=== PATIENT | male | born 1945 | race Native Hawaiian/Other Pacific Islander ===

== ENCOUNTER 2019-04-01 12:49 | Emergency (ER) | payer OTHER ==
[~2019-04-01] VITALS: Ht 167.6 cm; Wt 72.3 kg
[~2019-04-01 12:49] MED LIST: ASPI81TA87 PO; ATOR20TA86 PO; DSS100 PO; INSLAN SQ; INSNOV SQ; ISOS60TA4 PO; VIT1TABL95 PO
[2019-04-01 14:48] LABS: GLUCOSE,POINT OF CARE 214 MG/DL (70-110)
[2019-04-01 15:17] LABS: BASOPHILS % (AUTO) 0.6 % (0.0-2.0); EOSINOPHILS % (AUTO) 2.2 % (1.0-6.0); HEMATOCRIT 29.8 % (41-53); HEMOGLOBIN 9.9 g/dL (13.5-17.5); LYMPHOCYTES # (AUTO) 1.1 K/uL (1.0-4.8); LYMPHOCYTES % (AUTO) 10.1 % (22.0-44.0); MEAN CORPUSCULAR HEMOGLOBIN 28.4 pg (26.0-34.0); MEAN CORPUSCULAR HGB CONC 33.3 G/dL (31.0-37.0); MEAN CORPUSCULAR VOLUME 85 fL (80-100); MONOCYTES # (AUTO) 0.9 K/uL (0.1-1.0); MONOCYTES % (AUTO) 8.9 % (2.0-9.0); NEUTROPHILS # (AUTO) 8.2 K/uL (1.8-7.7); NEUTROPHILS % (AUTO) 78.2 % (40.0-70.0); PLATELET COUNT (AUTO) 229 K/uL (150-450); RED CELL DISTRIBUTION WIDTH 15.5 % (11.5-14.5)
[2019-04-01 15:36] LABS: CALCIUM, TOTAL 9.3 mg/dL (8.8-10.5); CREATININE 3.97 mg/dL (0.60-1.30); POTASSIUM 4.4 mmol/L (3.5-5.1)
[2019-04-01 15:43] LABS: ALBUMIN 2.4 g/dL (3.4-5.0); BILIRUBIN,TOTAL 0.3 mg/dL (0.1-1.0); TOTAL PROTEIN, SERUM 7.8 g/dL (6.4-8.2)
[2019-04-01] MEDS ORDERED: MECLIZINE HCL 25 MG TABLET PO ONE (16:00)
[2019-04-01] MEDS ORDERED: SODIUM CHLORIDE 0.9% 1,000 ML IV ONE (16:00)
[2019-04-01 18:42] VITALS: BP 141/77
[2019-04-01 19:01] LABS: GLUCOSE,POINT OF CARE 223 MG/DL (70-110)
== END 2019-04-01 19:10 | disposition short-term general hospital (02) ==
LOC: EMS 12:52
DX: J90 Pleural effusion, not elsewhere classified (principal); R42 Dizziness and giddiness; R53.1 Weakness; N17.9 Acute kidney failure, unspecified; E11.9 Type 2 diabetes mellitus without complications; E78.00 Pure hypercholesterolemia, unspecified; I10 Essential (primary) hypertension; Z79.899 Other long term (current) drug therapy; Z79.4 Long term (current) use of insulin
CPT/HCPCS: 36415; 71045; 80053; 82962; 83880; 84484; 85025; 93005; 99285; J7030

== ENCOUNTER 2020-11-13 20:08 | Inpatient (IN) | payer OTHER ==
[~2020-11-13] VITALS: Ht 167.6 cm; Wt 68.1 kg
[~2020-11-13 20:08] MED LIST changes: -ISOS60TA4 PO; +ISOS60TA77 PO
[2020-11-13 22:22] LABS: HEMATOCRIT 34.4 % (41-53); HEMOGLOBIN 11.3 g/dL (13.5-17.5); MEAN CORPUSCULAR HEMOGLOBIN 29.2 pg (26.0-34.0); MEAN CORPUSCULAR HGB CONC 32.8 G/dL (31.0-37.0); MEAN CORPUSCULAR VOLUME 89 fL (80-100); PLATELET COUNT (AUTO) 230 K/uL (150-450); RED BLOOD CELL COUNT(AUTO) 3.86 MIL/uL (4.50-5.90); RED CELL DISTRIBUTION WIDTH 16.5 % (11.5-14.5)
[2020-11-13 22:31] LABS: CALCIUM, TOTAL 9.2 mg/dL (8.8-10.5); CREATININE 3.7 mg/dL (0.60-1.30); POTASSIUM 3.5 mmol/L (3.5-5.1)
[2020-11-13 22:37] LABS: ALBUMIN 2.5 g/dL (3.4-5.0); BILIRUBIN,TOTAL 0.5 mg/dL (0.1-1.0); TOTAL PROTEIN, SERUM 7.5 g/dL (6.4-8.2)
[2020-11-13 22:42] LABS: BAND NEUTROPHILS % (MANUAL) 7 % (0-5); BASOPHILS % (MANUAL) 1 % (0-2); LYMPHOCYTES % (MANUAL) 4 % (22-44); METAMYELOCYTES % 3 % (0-0); MONOCYTES % (MANUAL) 4 % (2-9); MYELOCYTES % 1 % (0-0); SEGMENTED NEUTROPHILS % 80 % (40-70)
[2020-11-13] MEDS ORDERED: AZITHROMYCIN 500 MG/NS 250 ML IV ONE (23:30)
[2020-11-13] MEDS ORDERED: CefTRIAXone 1 GM/DEXTROSE 50 ML IV ONE (23:30)
[2020-11-14 00:01] LABS: COVID AG,FIA SOURCE NASAL SWAB
[2020-11-14] MEDS ORDERED: DEXTROSE 50%-WATER 25 GM/50 ML SYRINGE IVP PRN (05:30)
[2020-11-14 06:49] LABS: LACTIC ACID 2.6 mmol/L (0.4-2.0)
[2020-11-14] MEDS ORDERED: SODIUM CHLORIDE 0.9% 250 ML IV ONE (07:15)
[2020-11-14] MEDS: DOCUSATE SODIUM 100 MG CAPSULE PO SCH ×2 (07:33→20:47)
[2020-11-14] MEDS: ATORVASTATIN CALCIUM 20 MG TABLET PO SCH (07:33)
[2020-11-14] MEDS ORDERED: SODIUM CHLORIDE 0.9% 500 ML IV ONE (07:45)
[2020-11-14] MEDS ORDERED: SODIUM CHLORIDE 0.9% 100 ML ONE (07:57)
[2020-11-14] MEDS ORDERED: IOHEXOL 350 MG/ML 75 ML VIAL ONE (07:57)
[2020-11-14] MEDS ORDERED: ASPIRIN 81 MG DR TABLET PO SCH (09:00)
[2020-11-14 09:45] VITALS: BP 147/118
[2020-11-14] MEDS ORDERED: IBRU140C PO (10:30)
[2020-11-14 11:49] VITALS: BP 146/80
[2020-11-14] MEDS: INSULIN LISPRO 100 UNITS/ML SQ PRN ×2 (12:03→18:05)
[2020-11-14 15:59] VITALS: BP 149/89
[2020-11-14 20:26] LABS: GLUCOMETER DEV NAME(LOC) 5S.2B; GLUCOSE,POINT OF CARE 249 MG/DL (70-110)
[2020-11-14 20:35] VITALS: BP 138/75
[2020-11-14] MEDS: INSULIN GLARGINE,HUM.REC.ANLOG 100 UNITS/ML SQ SCH (20:53)
[2020-11-14 22:36] LABS: GLUCOMETER DEV NAME(LOC) 5S.1; GLUCOSE,POINT OF CARE 169 MG/DL (70-110)
[2020-11-15] MEDS: AZITHROMYCIN 500 MG/NS 250 ML IV SCH (00:15)
[2020-11-15] MEDS: CefTRIAXone 1 GM/DEXTROSE 50 ML IV SCH ×2 (00:15→23:42)
[2020-11-15 00:40] VITALS: BP 141/83
[2020-11-15 00:42] LABS: GLUCOMETER DEV NAME(LOC) 5S.2B; GLUCOSE,POINT OF CARE 164 MG/DL (70-110)
[2020-11-15 04:46] VITALS: BP 151/83
[2020-11-15] MEDS: MECLIZINE HCL 25 MG TABLET PO PRN ×2 (06:29→21:09)
[2020-11-15] MEDS: DOCUSATE SODIUM 100 MG CAPSULE PO SCH ×2 (08:36→21:09)
[2020-11-15] MEDS: ASPIRIN 81 MG DR TABLET PO SCH (08:36)
[2020-11-15] MEDS: ATORVASTATIN CALCIUM 20 MG TABLET PO SCH (08:36)
[2020-11-15] MEDS ORDERED: LACT10SO75 PO (10:45)
[2020-11-15] MEDS ORDERED: LOPE2 PO (10:45)
[2020-11-15] MEDS ORDERED: PHOSLOC PO (10:45)
[2020-11-15] MEDS ORDERED: GABA-1216 PO (10:45)
[2020-11-15] MEDS ORDERED: APIX2.5T PO (10:45)
[2020-11-15] MEDS ORDERED: LORA-1000 PO (10:45)
[2020-11-15 11:29] VITALS: BP 153/82
[2020-11-15] MEDS ORDERED: MECL-160 PO (11:29)
[2020-11-15] MEDS ORDERED: MIRT-89 PO (11:29)
[2020-11-15] MEDS ORDERED: FOLI1TAB85 PO (11:29)
[2020-11-15] MEDS ORDERED: METO50 PO (11:29)
[2020-11-15] MEDS ORDERED: NITR0.4T52 SL (11:29)
[2020-11-15] MEDS ORDERED: TAMS-13 PO (11:29)
[2020-11-15] MEDS ORDERED: PANT-31 PO (11:29)
[2020-11-15] MEDS ORDERED: OMEP20 PO (11:29)
[2020-11-15] MEDS ORDERED: CHOL-35 PO (11:29)
[2020-11-15] MEDS ORDERED: FLUT16H NASAL (11:29)
[2020-11-15] MEDS ORDERED: SEVE0.8P6 PO (11:29)
[2020-11-15] MEDS ORDERED: TRAM50TA4 PO (11:29)
[2020-11-15] MEDS ORDERED: ALLO100T2 PO (11:29)
[2020-11-15] MEDS ORDERED: ACET-3385 PO (11:29)
[2020-11-15] MEDS: INSULIN LISPRO 100 UNITS/ML SQ PRN ×2 (11:50→17:07)
[2020-11-15] MEDS ORDERED: METOPROLOL TARTRATE 50 MG TABLET PO ONE (13:00)
[2020-11-15 13:31] LABS: GLUCOMETER DEV NAME(LOC) 5S.2B; GLUCOSE,POINT OF CARE 145 MG/DL (70-110)
[2020-11-15 13:31] LABS: GLUCOMETER DEV NAME(LOC) 5S.2B; GLUCOSE,POINT OF CARE 91 MG/DL (70-110)
[2020-11-15] MEDS: VITAMIN B COMP/VIT C/FOLIC ACID CAPSULE PO SCH (13:48)
[2020-11-15] MEDS: HEPARIN SODIUM,PORCINE 5,000 UNITS/ML VIAL SQ SCH ×3 (16:00→21:09)
[2020-11-15] MEDS: CALCIUM ACETATE 667 MG CAPSULE PO SCH (18:00)
[2020-11-15] MEDS: SEVELAMER CARBONATE 800 MG TABLET PO SCH (18:00)
[2020-11-15] MEDS ORDERED: SODIUM CHLORIDE 0.9% 2,000 ML ONE (19:18)
[2020-11-15 20:07] VITALS: BP 165/95
[2020-11-15 20:20] LABS: GLUCOMETER DEV NAME(LOC) 5S.2B; GLUCOSE,POINT OF CARE 143 MG/DL (70-110)
[2020-11-15] MEDS: FLUTICASONE PROPIONATE 50 MCG/SPRAY 16 GM NASAL SPRAY NASAL SCH (21:08)
[2020-11-15] MEDS: GABAPENTIN 100 MG CAPSULE PO SCH (21:08)
[2020-11-15] MEDS: MIRTAZAPINE 15 MG TABLET PO SCH (21:09)
[2020-11-15] MEDS: METOPROLOL TARTRATE 50 MG TABLET PO SCH (21:09)
[2020-11-15] MEDS: INSULIN GLARGINE,HUM.REC.ANLOG 100 UNITS/ML SQ SCH (21:19)
[2020-11-15 22:32] LABS: GLUCOMETER DEV NAME(LOC) 5N.1C; GLUCOSE,POINT OF CARE 180 MG/DL (70-110)
[2020-11-16 00:03] VITALS: BP 123/74
[2020-11-16] MEDS: AZITHROMYCIN 500 MG/NS 250 ML IV SCH ×2 (00:28→23:17)
[2020-11-16 03:52] VITALS: BP 150/80
[2020-11-16 07:50] VITALS: BP 147/79
[2020-11-16] MEDS: SEVELAMER CARBONATE 800 MG TABLET PO SCH ×3 (08:35→18:02)
[2020-11-16] MEDS: DOCUSATE SODIUM 100 MG CAPSULE PO SCH ×2 (08:35→21:04)
[2020-11-16] MEDS: CHOLECALCIFEROL (VIT D3) 1,000 UNITS [25 MCG] TABLET PO SCH (08:35)
[2020-11-16] MEDS: ATORVASTATIN CALCIUM 20 MG TABLET PO SCH (08:35)
[2020-11-16] MEDS: METOPROLOL TARTRATE 50 MG TABLET PO SCH ×2 (08:35→21:04)
[2020-11-16] MEDS: TAMSULOSIN HCL 0.4 MG CAPSULE PO SCH (08:35)
[2020-11-16] MEDS: ISOSORBIDE MONONITRATE 60 MG ER TABLET PO SCH (08:35)
[2020-11-16] MEDS: ALLOPURINOL 100 MG TABLET PO SCH (08:36)
[2020-11-16] MEDS: VITAMIN B COMP/VIT C/FOLIC ACID CAPSULE PO SCH (08:36)
[2020-11-16] MEDS: CALCIUM ACETATE 667 MG CAPSULE PO SCH ×3 (08:36→18:03)
[2020-11-16] MEDS: HEPARIN SODIUM,PORCINE 5,000 UNITS/ML VIAL SQ SCH ×3 (08:36→21:00)
[2020-11-16] MEDS: ASPIRIN 81 MG DR TABLET PO SCH (08:36)
[2020-11-16] MEDS: FLUTICASONE PROPIONATE 50 MCG/SPRAY 16 GM NASAL SPRAY NASAL SCH ×2 (08:37→21:04)
[2020-11-16 08:54] LABS: GLUCOMETER DEV NAME(LOC) 5S.2B; GLUCOSE,POINT OF CARE 96 MG/DL (70-110)
[2020-11-16] MEDS ORDERED: VITAMIN B COMP/VIT C/FOLIC ACID CAPSULE PO SCH (09:00)
[2020-11-16 10:14] LABS: PROTHROMBIN TIME 10.4 SEC (9.4-11.6)
[2020-11-16 11:45] VITALS: BP 116/75
[2020-11-16] MEDS: INSULIN LISPRO 100 UNITS/ML SQ PRN ×2 (11:55→18:03)
[2020-11-16 12:38] LABS: GLUCOMETER DEV NAME(LOC) 5S.2B; GLUCOSE,POINT OF CARE 184 MG/DL (70-110)
[2020-11-16 16:05] VITALS: BP 137/99
[2020-11-16 18:36] LABS: GLUCOMETER DEV NAME(LOC) 5S.1; GLUCOSE,POINT OF CARE 185 MG/DL (70-110)
[2020-11-16 20:15] VITALS: BP 137/86
[2020-11-16] MEDS: GABAPENTIN 100 MG CAPSULE PO SCH (21:04)
[2020-11-16] MEDS: MIRTAZAPINE 15 MG TABLET PO SCH (21:04)
[2020-11-16] MEDS: INSULIN GLARGINE,HUM.REC.ANLOG 100 UNITS/ML SQ SCH (21:13)
[2020-11-16] MEDS: CefTRIAXone 1 GM/DEXTROSE 50 ML IV SCH (22:40)
[2020-11-17 00:48] VITALS: BP 181/96
[2020-11-17] MEDS ORDERED: HydrALAZINE HCL 20 MG/ML VIAL IVP ONE (01:00)
[2020-11-17 03:29] VITALS: BP 157/75
[2020-11-17 05:41] LABS: GLUCOMETER DEV NAME(LOC) 5S.1; GLUCOSE,POINT OF CARE 202 MG/DL (70-110)
[2020-11-17] MEDS ORDERED: SODIUM CHLORIDE 0.9% 1,000 ML ONE ×3 (06:48→10:31)
[2020-11-17] MEDS ORDERED: SODIUM CL IRRIG SOLN BAG 0 ML IRRIG ONE (06:48)
[2020-11-17] MEDS ORDERED: SODIUM CHLORIDE 0.9% 500 ML IV ONE ×2 (06:48→21:26)
[2020-11-17] MEDS ORDERED: LIDOCAINE/PF 1% 30 ML VIAL ONE (06:48)
[2020-11-17 07:10] LABS: GLUCOMETER DEV NAME(LOC) 5S.2B; GLUCOSE,POINT OF CARE 130 MG/DL (70-110)
[2020-11-17 07:37] VITALS: BP 150/82
[2020-11-17] MEDS: SEVELAMER CARBONATE 800 MG TABLET PO SCH ×3 (08:00→18:19)
[2020-11-17] MEDS: CALCIUM ACETATE 667 MG CAPSULE PO SCH ×3 (08:00→18:19)
[2020-11-17] MEDS ORDERED: SODIUM CHLORIDE 0.9% 1,000 ML IV ONE (08:15)
[2020-11-17 08:37] LABS: HEMATOCRIT 31.8 % (41-53); HEMOGLOBIN 10.4 g/dL (13.5-17.5); LYMPHOCYTES # (AUTO) 1.2 K/uL (1.0-4.8); LYMPHOCYTES % (AUTO) 13.4 % (22.0-44.0); MEAN CORPUSCULAR HEMOGLOBIN 29.3 pg (26.0-34.0); MEAN CORPUSCULAR HGB CONC 32.6 G/dL (31.0-37.0); MEAN CORPUSCULAR VOLUME 90 fL (80-100); MONOCYTES % (AUTO) 11.9 % (2.0-9.0); NEUTROPHILS # (AUTO) 5.7 K/uL (1.8-7.7); NEUTROPHILS % (AUTO) 65.7 % (40.0-70.0); PLATELET COUNT (AUTO) 222 K/uL (150-450); RED BLOOD CELL COUNT(AUTO) 3.54 MIL/uL (4.50-5.90); RED CELL DISTRIBUTION WIDTH 16.3 % (11.5-14.5)
[2020-11-17 08:45] LABS: CALCIUM, TOTAL 10.2 mg/dL (8.8-10.5); CREATININE 4.63 mg/dL (0.60-1.30); POTASSIUM 3.4 mmol/L (3.5-5.1)
[2020-11-17 08:52] LABS: ALBUMIN 2.1 g/dL (3.4-5.0); BILIRUBIN,TOTAL 0.2 mg/dL (0.1-1.0); TOTAL PROTEIN, SERUM 6.5 g/dL (6.4-8.2)
[2020-11-17 08:56] LABS: PROTHROMBIN TIME 10.3 SEC (9.4-11.6)
[2020-11-17] MEDS: HEPARIN SODIUM,PORCINE 5,000 UNITS/ML VIAL SQ SCH ×3 (09:00→20:43)
[2020-11-17] MEDS: TAMSULOSIN HCL 0.4 MG CAPSULE PO SCH (09:00)
[2020-11-17] MEDS: ALLOPURINOL 100 MG TABLET PO SCH (09:00)
[2020-11-17] MEDS: ATORVASTATIN CALCIUM 20 MG TABLET PO SCH (09:00)
[2020-11-17] MEDS: DOCUSATE SODIUM 100 MG CAPSULE PO SCH ×2 (09:00→20:43)
[2020-11-17] MEDS: FLUTICASONE PROPIONATE 50 MCG/SPRAY 16 GM NASAL SPRAY NASAL SCH ×2 (09:00→20:44)
[2020-11-17] MEDS: VITAMIN B COMP/VIT C/FOLIC ACID CAPSULE PO SCH (09:00)
[2020-11-17] MEDS: ASPIRIN 81 MG DR TABLET PO SCH (09:00)
[2020-11-17] MEDS ORDERED: DOXYCYCLINE HYCLATE 100 MG/VIAL IPL ONE (09:00)
[2020-11-17] MEDS: CHOLECALCIFEROL (VIT D3) 1,000 UNITS [25 MCG] TABLET PO SCH (09:00)
[2020-11-17] MEDS: ISOSORBIDE MONONITRATE 60 MG ER TABLET PO SCH (09:00)
[2020-11-17] MEDS ORDERED: SODIUM CHLORIDE 0.9% 0 ML IV ONE (09:01)
[2020-11-17] MEDS ORDERED: BACITRACIN 50,000 UNITS/VIAL ONE (09:01)
[2020-11-17] MEDS ORDERED: SODIUM CHLORIDE 0.9% 10 ML ONE (09:01)
[2020-11-17] MEDS: METOPROLOL TARTRATE 50 MG TABLET PO SCH ×2 (09:23→20:43)
[2020-11-17] MEDS ORDERED: SODIUM CHLORIDE 0.9% 100 ML ONE (09:48)
[2020-11-17] MEDS ORDERED: OxyCODONE HCL 5 MG IR TABLET PO PRN (10:15)
[2020-11-17] MEDS ORDERED: ACETAMINOPHEN 500 MG TABLET PO PRN (10:15)
[2020-11-17] MEDS ORDERED: DOCU-270 PO (10:52)
[2020-11-17] MEDS ORDERED: ISOS30TA92 PO (10:52)
[2020-11-17] MEDS ORDERED: AMLO10TA55 PO (10:52)
[2020-11-17] MEDS ORDERED: SEVE800T17 PO (10:52)
[2020-11-17] MEDS ORDERED: IBRU420T PO (10:52)
[2020-11-17] MEDS ORDERED: SUGAMMADEX SODIUM 200 MG/2 ML VIAL IVP ONE (12:17)
[2020-11-17] MEDS: INSULIN LISPRO 100 UNITS/ML SQ PRN (18:22)
[2020-11-17 19:42] VITALS: BP 122/64
[2020-11-17] MEDS: GABAPENTIN 100 MG CAPSULE PO SCH (20:43)
[2020-11-17] MEDS: MIRTAZAPINE 15 MG TABLET PO SCH (20:43)
[2020-11-17] MEDS: INSULIN GLARGINE,HUM.REC.ANLOG 100 UNITS/ML SQ SCH (20:46)
[2020-11-17] MEDS: AZITHROMYCIN 500 MG/NS 250 ML IV SCH (22:47)
[2020-11-17 23:46] VITALS: BP_SYST 115; BP_SYST 117; BP_DIAS 68; BP_DIAS 70
[2020-11-18] MEDS: CefTRIAXone 1 GM/DEXTROSE 50 ML IV SCH (00:45)
[2020-11-18 03:50] VITALS: BP 148/86
[2020-11-18] MEDS: INSULIN LISPRO 100 UNITS/ML SQ PRN (06:19)
[2020-11-18] MEDS ORDERED: ONDANSETRON HCL 4 MG/2 ML VIAL IVP ONE (06:32)
[2020-11-18] MEDS ORDERED: 0.9% SODIUM CHLORIDE 10 ML VIAL IVP ONE (06:32)
[2020-11-18] MEDS ORDERED: KETAMINE HCL 50 MG/ML 10 ML VIAL IVP ONE (06:32)
[2020-11-18] MEDS ORDERED: NEOSTIGMINE METHYLSULFATE 1 MG/ML 10 ML VIAL IVP ONE (06:32)
[2020-11-18] MEDS ORDERED: FentaNYL CITRATE PF 100 MCG/2 ML VIAL IVP ONE (06:32)
[2020-11-18] MEDS ORDERED: MIDAZOLAM HCL 2 MG/2 ML VIAL IVP ONE (06:32)
[2020-11-18] MEDS ORDERED: ROCURONIUM BROMIDE 10 MG/ML 5 ML VIAL IVP ONE (06:32)
[2020-11-18] MEDS ORDERED: PROPOFOL 1% 20 ML VIAL IVP ONE (06:32)
[2020-11-18] MEDS ORDERED: LIDOCAINE/PF 2% 5 ML VIAL IM ONE (06:32)
[2020-11-18] MEDS ORDERED: GLYCOPYRROLATE 0.2 MG/ML VIAL IM ONE (06:32)
[2020-11-18] MEDS ORDERED: EPHEDrine SULFATE 50 MG/ML VIAL IM ONE (06:32)
[2020-11-18 08:08] VITALS: BP 128/80
[2020-11-18] MEDS: CALCIUM ACETATE 667 MG CAPSULE PO SCH ×3 (08:24→20:28)
[2020-11-18] MEDS: ATORVASTATIN CALCIUM 20 MG TABLET PO SCH (08:24)
[2020-11-18] MEDS: TAMSULOSIN HCL 0.4 MG CAPSULE PO SCH (08:24)
[2020-11-18] MEDS: SEVELAMER CARBONATE 800 MG TABLET PO SCH ×3 (08:24→20:29)
[2020-11-18] MEDS: METOPROLOL TARTRATE 50 MG TABLET PO SCH ×2 (08:24→20:28)
[2020-11-18] MEDS: HEPARIN SODIUM,PORCINE 5,000 UNITS/ML VIAL SQ SCH ×3 (08:25→20:40)
[2020-11-18] MEDS: VITAMIN B COMP/VIT C/FOLIC ACID CAPSULE PO SCH (08:25)
[2020-11-18] MEDS: CHOLECALCIFEROL (VIT D3) 1,000 UNITS [25 MCG] TABLET PO SCH (08:25)
[2020-11-18] MEDS: ASPIRIN 81 MG DR TABLET PO SCH (08:25)
[2020-11-18] MEDS: DOCUSATE SODIUM 100 MG CAPSULE PO SCH ×2 (08:26→20:28)
[2020-11-18] MEDS: ISOSORBIDE MONONITRATE 60 MG ER TABLET PO SCH (08:26)
[2020-11-18] MEDS: ALLOPURINOL 100 MG TABLET PO SCH (08:26)
[2020-11-18 11:28] VITALS: BP 142/74
[2020-11-18] MEDS: FLUTICASONE PROPIONATE 50 MCG/SPRAY 16 GM NASAL SPRAY NASAL SCH ×2 (11:42→20:40)
[2020-11-18 12:14] LABS: GLUCOMETER DEV NAME(LOC) 5S.1; GLUCOSE,POINT OF CARE 139 MG/DL (70-110)
[2020-11-18 20:05] VITALS: BP 171/86
[2020-11-18] MEDS: MIRTAZAPINE 15 MG TABLET PO SCH (20:28)
[2020-11-18] MEDS: GABAPENTIN 100 MG CAPSULE PO SCH (20:28)
[2020-11-18] MEDS: INSULIN GLARGINE,HUM.REC.ANLOG 100 UNITS/ML SQ SCH (20:47)
[2020-11-18 21:34] LABS: GLUCOMETER DEV NAME(LOC) 5N.3; GLUCOSE,POINT OF CARE 156 MG/DL (70-110)
[2020-11-18 21:35] LABS: GLUCOMETER DEV NAME(LOC) 5S.1; GLUCOSE,POINT OF CARE 192 MG/DL (70-110)
[2020-11-18 21:35] LABS: GLUCOMETER DEV NAME(LOC) 5N.3; GLUCOSE,POINT OF CARE 248 MG/DL (70-110)
[2020-11-18 21:35] LABS: GLUCOMETER DEV NAME(LOC) 5N.3; GLUCOSE,POINT OF CARE 150 MG/DL (70-110)
[2020-11-18 23:29] VITALS: BP 162/88
[2020-11-19] VITALS (7 sets, daily range): BP systolic 104–147; BP diastolic 58–80
[2020-11-19] MEDS: CefTRIAXone 1 GM/DEXTROSE 50 ML IV SCH ×3 (00:27→12:31)
[2020-11-19] MEDS: AZITHROMYCIN 500 MG/NS 250 ML IV SCH ×2 (00:27→13:22)
[2020-11-19 07:00] LABS: MAGNESIUM 2.2 mg/dL (1.80-2.40); PHOSPHORUS 3.9 mg/dL (2.5-4.9)
[2020-11-19 07:53] LABS: GLUCOMETER DEV NAME(LOC) 5S.1; GLUCOSE,POINT OF CARE 140 MG/DL (70-110)
[2020-11-19 08:24] LABS: GLUCOMETER DEV NAME(LOC) 5S.2B; GLUCOSE,POINT OF CARE 122 MG/DL (70-110)
[2020-11-19] MEDS: ISOSORBIDE MONONITRATE 60 MG ER TABLET PO SCH (08:46)
[2020-11-19] MEDS: HEPARIN SODIUM,PORCINE 5,000 UNITS/ML VIAL SQ SCH ×3 (08:47→20:53)
[2020-11-19] MEDS: TAMSULOSIN HCL 0.4 MG CAPSULE PO SCH (08:47)
[2020-11-19] MEDS: ATORVASTATIN CALCIUM 20 MG TABLET PO SCH (08:47)
[2020-11-19] MEDS: VITAMIN B COMP/VIT C/FOLIC ACID CAPSULE PO SCH (08:47)
[2020-11-19] MEDS: CALCIUM ACETATE 667 MG CAPSULE PO SCH ×3 (08:47→17:08)
[2020-11-19] MEDS: DOCUSATE SODIUM 100 MG CAPSULE PO SCH ×2 (08:47→20:52)
[2020-11-19] MEDS: METOPROLOL TARTRATE 50 MG TABLET PO SCH ×2 (08:47→20:53)
[2020-11-19] MEDS: ASPIRIN 81 MG DR TABLET PO SCH (08:47)
[2020-11-19] MEDS: SEVELAMER CARBONATE 800 MG TABLET PO SCH ×3 (08:47→17:08)
[2020-11-19] MEDS: CHOLECALCIFEROL (VIT D3) 1,000 UNITS [25 MCG] TABLET PO SCH (08:48)
[2020-11-19] MEDS: ALLOPURINOL 100 MG TABLET PO SCH (08:48)
[2020-11-19] MEDS: FLUTICASONE PROPIONATE 50 MCG/SPRAY 16 GM NASAL SPRAY NASAL SCH ×2 (08:48→20:52)
[2020-11-19] MEDS: INSULIN LISPRO 100 UNITS/ML SQ PRN ×4 (13:27→21:00)
[2020-11-19 13:30] LABS: GLUCOMETER DEV NAME(LOC) 5N.3; GLUCOSE,POINT OF CARE 169 MG/DL (70-110)
[2020-11-19] MEDS: INSULIN GLARGINE,HUM.REC.ANLOG 100 UNITS/ML SQ SCH (20:49)
[2020-11-19] MEDS: MIRTAZAPINE 15 MG TABLET PO SCH (20:53)
[2020-11-19] MEDS: GABAPENTIN 100 MG CAPSULE PO SCH (20:53)
[2020-11-20 03:23] LABS: GLUCOMETER DEV NAME(LOC) 5N.1C; GLUCOSE,POINT OF CARE 171 MG/DL (70-110)
[2020-11-20 04:19] VITALS: BP 120/67
[2020-11-20] MEDS: INSULIN LISPRO 100 UNITS/ML SQ PRN ×2 (06:30→12:04)
[2020-11-20 07:40] VITALS: BP 136/75
[2020-11-20 08:00] LABS: BASOPHILS % (AUTO) 1.1 % (0.0-2.0); EOSINOPHILS % (AUTO) 8.9 % (1.0-6.0); HEMOGLOBIN 8.3 g/dL (13.5-17.5); LYMPHOCYTES # (AUTO) 0.4 K/uL (1.0-4.8); LYMPHOCYTES % (AUTO) 5.9 % (22.0-44.0); MEAN CORPUSCULAR HEMOGLOBIN 29.8 pg (26.0-34.0); MEAN CORPUSCULAR HGB CONC 33.1 G/dL (31.0-37.0); MEAN CORPUSCULAR VOLUME 90 fL (80-100); MONOCYTES # (AUTO) 0.7 K/uL (0.1-1.0); MONOCYTES % (AUTO) 10.5 % (2.0-9.0); NEUTROPHILS # (AUTO) 5.1 K/uL (1.8-7.7); NEUTROPHILS % (AUTO) 73.6 % (40.0-70.0); PLATELET COUNT (AUTO) 173 K/uL (150-450); RED BLOOD CELL COUNT(AUTO) 2.78 MIL/uL (4.50-5.90)
[2020-11-20 08:16] LABS: CREATININE 4.48 mg/dL (0.60-1.30); MAGNESIUM 2.2 mg/dL (1.80-2.40); PHOSPHORUS 4.5 mg/dL (2.5-4.9); POTASSIUM 3.6 mmol/L (3.5-5.1)
[2020-11-20] MEDS: ASPIRIN 81 MG DR TABLET PO SCH (08:53)
[2020-11-20] MEDS: DOCUSATE SODIUM 100 MG CAPSULE PO SCH ×2 (08:53→20:17)
[2020-11-20] MEDS: CALCIUM ACETATE 667 MG CAPSULE PO SCH (08:53)
[2020-11-20] MEDS: ISOSORBIDE MONONITRATE 60 MG ER TABLET PO SCH (08:54)
[2020-11-20] MEDS: CHOLECALCIFEROL (VIT D3) 1,000 UNITS [25 MCG] TABLET PO SCH (08:54)
[2020-11-20] MEDS: HEPARIN SODIUM,PORCINE 5,000 UNITS/ML VIAL SQ SCH ×3 (08:54→20:17)
[2020-11-20] MEDS: TAMSULOSIN HCL 0.4 MG CAPSULE PO SCH (08:54)
[2020-11-20] MEDS: METOPROLOL TARTRATE 50 MG TABLET PO SCH ×2 (08:54→20:17)
[2020-11-20] MEDS: VITAMIN B COMP/VIT C/FOLIC ACID CAPSULE PO SCH (08:54)
[2020-11-20] MEDS: ATORVASTATIN CALCIUM 20 MG TABLET PO SCH (08:54)
[2020-11-20] MEDS: SEVELAMER CARBONATE 800 MG TABLET PO SCH ×3 (08:54→20:23)
[2020-11-20] MEDS: FLUTICASONE PROPIONATE 50 MCG/SPRAY 16 GM NASAL SPRAY NASAL SCH ×2 (08:55→20:17)
[2020-11-20] MEDS: ALLOPURINOL 100 MG TABLET PO SCH (08:55)
[2020-11-20 11:17] LABS: GLUCOMETER DEV NAME(LOC) 5S.1; GLUCOSE,POINT OF CARE 173 MG/DL (70-110)
[2020-11-20] MEDS: CefTRIAXone 1 GM/DEXTROSE 50 ML IV SCH (12:00)
[2020-11-20 12:11] LABS: GLUCOMETER DEV NAME(LOC) 5N.3; GLUCOSE,POINT OF CARE 242 MG/DL (70-110)
[2020-11-20 12:30] LABS: GLUCOMETER DEV NAME(LOC) 5S.1; GLUCOSE,POINT OF CARE 157 MG/DL (70-110)
[2020-11-20] MEDS ORDERED: LACTULOSE 20 GM/30 ML SOLUTION UDCUP PO ONE (12:30)
[2020-11-20 14:57] VITALS: BP 111/61
[2020-11-20 20:04] VITALS: BP 116/60
[2020-11-20] MEDS: GABAPENTIN 100 MG CAPSULE PO SCH (20:17)
[2020-11-20] MEDS: AZITHROMYCIN 500 MG/NS 250 ML IV SCH (20:17)
[2020-11-20] MEDS: MIRTAZAPINE 15 MG TABLET PO SCH (20:17)
[2020-11-20 20:19] LABS: GLUCOMETER DEV NAME(LOC) 5N.1C; GLUCOSE,POINT OF CARE 123 MG/DL (70-110)
[2020-11-20] MEDS: INSULIN GLARGINE,HUM.REC.ANLOG 100 UNITS/ML SQ SCH (20:19)
[2020-11-21 00:18] VITALS: BP 152/99
[2020-11-21 02:58] LABS: GLUCOMETER DEV NAME(LOC) 5N.1C; GLUCOSE,POINT OF CARE 136 MG/DL (70-110)
[2020-11-21 04:53] VITALS: BP 120/99
[2020-11-21 06:36] LABS: GLUCOMETER DEV NAME(LOC) 5N.1C; GLUCOSE,POINT OF CARE 83 MG/DL (70-110)
[2020-11-21 07:35] VITALS: BP 155/89
[2020-11-21] MEDS: ALLOPURINOL 100 MG TABLET PO SCH (08:05)
[2020-11-21] MEDS: ASPIRIN 81 MG DR TABLET PO SCH (08:05)
[2020-11-21] MEDS: DOCUSATE SODIUM 100 MG CAPSULE PO SCH ×2 (08:05→20:31)
[2020-11-21] MEDS: METOPROLOL TARTRATE 50 MG TABLET PO SCH ×2 (08:06→20:31)
[2020-11-21] MEDS: TAMSULOSIN HCL 0.4 MG CAPSULE PO SCH (08:06)
[2020-11-21] MEDS: ATORVASTATIN CALCIUM 20 MG TABLET PO SCH (08:06)
[2020-11-21] MEDS: VITAMIN B COMP/VIT C/FOLIC ACID CAPSULE PO SCH (08:06)
[2020-11-21] MEDS: HEPARIN SODIUM,PORCINE 5,000 UNITS/ML VIAL SQ SCH ×3 (08:06→20:33)
[2020-11-21] MEDS: SEVELAMER CARBONATE 800 MG TABLET PO SCH ×3 (08:06→17:15)
[2020-11-21] MEDS: ISOSORBIDE MONONITRATE 60 MG ER TABLET PO SCH (08:06)
[2020-11-21] MEDS: FLUTICASONE PROPIONATE 50 MCG/SPRAY 16 GM NASAL SPRAY NASAL SCH ×2 (08:07→20:36)
[2020-11-21] MEDS: EPOETIN ALFA 10,000 UNITS/ML 2 ML VIAL SQ SCH (08:34)
[2020-11-21] MEDS: CefTRIAXone 1 GM/DEXTROSE 50 ML IV SCH (10:23)
[2020-11-21 11:25] VITALS: BP 119/74
[2020-11-21] MEDS: INSULIN LISPRO 100 UNITS/ML SQ PRN ×2 (11:39→20:35)
[2020-11-21 11:57] LABS: GLUCOMETER DEV NAME(LOC) 5N.1C; GLUCOSE,POINT OF CARE 162 MG/DL (70-110)
[2020-11-21] MEDS: AZITHROMYCIN 500 MG/NS 250 ML IV SCH (14:58)
[2020-11-21 16:27] VITALS: BP 128/73
[2020-11-21 17:32] LABS: GLUCOMETER DEV NAME(LOC) 5N.1C; GLUCOSE,POINT OF CARE 126 MG/DL (70-110)
[2020-11-21 19:38] VITALS: BP 130/83
[2020-11-21] MEDS ORDERED: BISACODYL 10 MG RECTAL RECTAL SUPPOSITORY PR ONE (20:00)
[2020-11-21] MEDS: GABAPENTIN 100 MG CAPSULE PO SCH (20:31)
[2020-11-21] MEDS: MIRTAZAPINE 15 MG TABLET PO SCH (20:31)
[2020-11-21] MEDS: INSULIN GLARGINE,HUM.REC.ANLOG 100 UNITS/ML SQ SCH (20:35)
[2020-11-22] VITALS (7 sets, daily range): BP systolic 128–152; BP diastolic 65–83
[2020-11-22 05:18] LABS: GLUCOMETER DEV NAME(LOC) 5N.1C; GLUCOSE,POINT OF CARE 145 MG/DL (70-110)
[2020-11-22 06:37] LABS: GLUCOMETER DEV NAME(LOC) 5S.2B; GLUCOSE,POINT OF CARE 72 MG/DL (70-110)
[2020-11-22 07:22] LABS: BASOPHILS % (AUTO) 1.1 % (0.0-2.0); EOSINOPHILS % (AUTO) 6.5 % (1.0-6.0); HEMATOCRIT 26.9 % (41-53); HEMOGLOBIN 8.8 g/dL (13.5-17.5); LYMPHOCYTES # (AUTO) 0.9 K/uL (1.0-4.8); LYMPHOCYTES % (AUTO) 10.9 % (22.0-44.0); MEAN CORPUSCULAR HEMOGLOBIN 29.7 pg (26.0-34.0); MEAN CORPUSCULAR HGB CONC 32.6 G/dL (31.0-37.0); MEAN CORPUSCULAR VOLUME 91 fL (80-100); MONOCYTES # (AUTO) 1.1 K/uL (0.1-1.0); MONOCYTES % (AUTO) 12.3 % (2.0-9.0); NEUTROPHILS # (AUTO) 5.9 K/uL (1.8-7.7); NEUTROPHILS % (AUTO) 69.2 % (40.0-70.0); PLATELET COUNT (AUTO) 186 K/uL (150-450); RED BLOOD CELL COUNT(AUTO) 2.95 MIL/uL (4.50-5.90); RED CELL DISTRIBUTION WIDTH 16.6 % (11.5-14.5)
[2020-11-22 07:33] LABS: CREATININE 4.54 mg/dL (0.60-1.30); MAGNESIUM 2.2 mg/dL (1.80-2.40); PHOSPHORUS 3.4 mg/dL (2.5-4.9); POTASSIUM 3.6 mmol/L (3.5-5.1)
[2020-11-22 07:41] LABS: CALCIUM, TOTAL 11.5 mg/dL (8.8-10.5)
[2020-11-22] MEDS: ASPIRIN 81 MG DR TABLET PO SCH (08:13)
[2020-11-22] MEDS: ALLOPURINOL 100 MG TABLET PO SCH (08:13)
[2020-11-22] MEDS: DOCUSATE SODIUM 100 MG CAPSULE PO SCH ×2 (08:13→21:16)
[2020-11-22] MEDS: ATORVASTATIN CALCIUM 20 MG TABLET PO SCH (08:13)
[2020-11-22] MEDS: ISOSORBIDE MONONITRATE 60 MG ER TABLET PO SCH (08:13)
[2020-11-22] MEDS: VITAMIN B COMP/VIT C/FOLIC ACID CAPSULE PO SCH (08:13)
[2020-11-22] MEDS: TAMSULOSIN HCL 0.4 MG CAPSULE PO SCH (08:13)
[2020-11-22] MEDS: SEVELAMER CARBONATE 800 MG TABLET PO SCH ×3 (08:13→18:41)
[2020-11-22] MEDS: HEPARIN SODIUM,PORCINE 5,000 UNITS/ML VIAL SQ SCH ×3 (08:13→21:16)
[2020-11-22] MEDS: FLUTICASONE PROPIONATE 50 MCG/SPRAY 16 GM NASAL SPRAY NASAL SCH ×2 (08:17→21:17)
[2020-11-22] MEDS: METOPROLOL TARTRATE 50 MG TABLET PO SCH ×2 (09:00→21:16)
[2020-11-22] MEDS ORDERED: LACTULOSE 20 GM/30 ML SOLUTION UDCUP PO PRN ×3 (10:30→23:00)
[2020-11-22] MEDS: CefTRIAXone 1 GM/DEXTROSE 50 ML IV SCH (14:25)
[2020-11-22] MEDS: AZITHROMYCIN 500 MG/NS 250 ML IV SCH (15:53)
[2020-11-22 16:37] LABS: GLUCOMETER DEV NAME(LOC) 5N.3; GLUCOSE,POINT OF CARE 144 MG/DL (70-110)
[2020-11-22] MEDS ORDERED: MAGNESIUM HYDROXIDE SUSPENSION 30 ML UDCUP PO PRN (20:45)
[2020-11-22] MEDS ORDERED: BISACODYL 10 MG RECTAL RECTAL SUPPOSITORY PR PRN (20:45)
[2020-11-22] MEDS ORDERED: INSULIN GLARGINE,HUM.REC.ANLOG 100 UNITS/ML SQ SCH (21:00)
[2020-11-22] MEDS: MIRTAZAPINE 15 MG TABLET PO SCH (21:16)
[2020-11-22] MEDS: GABAPENTIN 100 MG CAPSULE PO SCH (21:16)
[2020-11-22 21:46] LABS: GLUCOMETER DEV NAME(LOC) 5N.1C; GLUCOSE,POINT OF CARE 178 MG/DL (70-110)
[2020-11-23 02:56] LABS: GLUCOMETER DEV NAME(LOC) 5N.3; GLUCOSE,POINT OF CARE 171 MG/DL (70-110)
[2020-11-23 04:13] VITALS: BP 129/62
[2020-11-23 06:30] LABS: BASOPHILS % (AUTO) 0.6 % (0.0-2.0); EOSINOPHILS % (AUTO) 5.8 % (1.0-6.0); HEMOGLOBIN 8.4 g/dL (13.5-17.5); LYMPHOCYTES # (AUTO) 0.7 K/uL (1.0-4.8); MEAN CORPUSCULAR HGB CONC 32.3 G/dL (31.0-37.0); MEAN CORPUSCULAR VOLUME 93 fL (80-100); MONOCYTES # (AUTO) 1.2 K/uL (0.1-1.0); MONOCYTES % (AUTO) 15.1 % (2.0-9.0); NEUTROPHILS # (AUTO) 5.4 K/uL (1.8-7.7); NEUTROPHILS % (AUTO) 69.5 % (40.0-70.0); PLATELET COUNT (AUTO) 150 K/uL (150-450); RED BLOOD CELL COUNT(AUTO) 2.81 MIL/uL (4.50-5.90); RED CELL DISTRIBUTION WIDTH 16.8 % (11.5-14.5)
[2020-11-23 07:01] LABS: CALCIUM, TOTAL 10.4 mg/dL (8.8-10.5); CREATININE 3.42 mg/dL (0.60-1.30); MAGNESIUM 2.3 mg/dL (1.80-2.40); PHOSPHORUS 2.6 mg/dL (2.5-4.9); POTASSIUM 3.4 mmol/L (3.5-5.1)
[2020-11-23 07:03] LABS: GLUCOMETER DEV NAME(LOC) 5N.1C; GLUCOSE,POINT OF CARE 82 MG/DL (70-110)
[2020-11-23 07:14] VITALS: BP 132/66
[2020-11-23] MEDS: ATORVASTATIN CALCIUM 20 MG TABLET PO SCH (09:30)
[2020-11-23] MEDS: DOCUSATE SODIUM 100 MG CAPSULE PO SCH (09:30)
[2020-11-23] MEDS: ALLOPURINOL 100 MG TABLET PO SCH (09:30)
[2020-11-23] MEDS: TAMSULOSIN HCL 0.4 MG CAPSULE PO SCH (09:30)
[2020-11-23] MEDS: ISOSORBIDE MONONITRATE 60 MG ER TABLET PO SCH (09:30)
[2020-11-23] MEDS: SEVELAMER CARBONATE 800 MG TABLET PO SCH ×3 (09:30→17:50)
[2020-11-23] MEDS: ASPIRIN 81 MG DR TABLET PO SCH (09:30)
[2020-11-23] MEDS: METOPROLOL TARTRATE 50 MG TABLET PO SCH (09:30)
[2020-11-23] MEDS: VITAMIN B COMP/VIT C/FOLIC ACID CAPSULE PO SCH (09:30)
[2020-11-23] MEDS: EPOETIN ALFA 10,000 UNITS/ML 2 ML VIAL SQ SCH (09:32)
[2020-11-23] MEDS: HEPARIN SODIUM,PORCINE 5,000 UNITS/ML VIAL SQ SCH ×2 (09:34→17:50)
[2020-11-23] MEDS: FLUTICASONE PROPIONATE 50 MCG/SPRAY 16 GM NASAL SPRAY NASAL SCH (09:37)
[2020-11-23 11:26] VITALS: BP 167/86
[2020-11-23] MEDS: CefTRIAXone 1 GM/DEXTROSE 50 ML IV SCH (11:42)
[2020-11-23] MEDS: INSULIN LISPRO 100 UNITS/ML SQ PRN ×2 (11:46→17:51)
[2020-11-23] MEDS: AZITHROMYCIN 500 MG/NS 250 ML IV SCH (15:21)
[2020-11-23 16:40] VITALS: BP 128/72
[2020-11-23] MEDS ORDERED: CEFX2I IM (19:58)
[2020-11-23] MEDS ORDERED: [UNRECOGNIZED DRUG - CODE] SQ (19:59)
[2020-11-23] MEDS ORDERED: INSLAN SQ (20:00)
[2020-11-23] MEDS ORDERED: ISOS60TA77 PO (20:00)
[2020-11-23] MEDS ORDERED: BISA10SU11 PR (20:01)
[2020-11-23] MEDS ORDERED: INSU100V SQ (20:02)
[2020-11-23] MEDS ORDERED: OXYC5 PO (20:03)
[2020-11-23 22:19] LABS: GLUCOMETER DEV NAME(LOC) 5N.1C; GLUCOSE,POINT OF CARE 191 MG/DL (70-110)
[2020-11-24 05:14] LABS: GLUCOMETER DEV NAME(LOC) 5N.3; GLUCOSE,POINT OF CARE 176 MG/DL (70-110)
[2020-11-25] MEDS ORDERED: EPOETIN ALFA 10,000 UNITS/ML VIAL SQ SCH (09:00)
== END 2020-11-23 19:24 | DRG 163 ==
LOC: EMS 20:08 → 5N 11-14 09:20 → 5S 11-16 23:17
PROVIDERS: ADMIT Hospitalist; ATTEND Hospitalist
PROC: 3E0L4GC Introduction of Other Therapeutic Substance into Pleural Cavity, Percutaneous Endoscopic Approach (ICD-10-PCS; 2020-11-17)
PROC: 0BNK4ZZ Release Right Lung, Percutaneous Endoscopic Approach (ICD-10-PCS; principal; 2020-11-17 09:30)
DX: J18.9 Pneumonia, unspecified organism (principal); N18.6 End stage renal disease; I12.0 Hypertensive chronic kidney disease with stage 5 chronic kidney disease or end stage renal disease; J90 Pleural effusion, not elsewhere classified; E11.22 Type 2 diabetes mellitus with diabetic chronic kidney disease; E78.5 Hyperlipidemia, unspecified; W19.XXXA Unspecified fall, initial encounter; Z79.4 Long term (current) use of insulin; Z83.3 Family history of diabetes mellitus; Z85.72 Personal history of non-Hodgkin lymphomas; Z99.2 Dependence on renal dialysis; E83.52 Hypercalcemia; Z79.899 Other long term (current) drug therapy; Z86.73 Personal history of transient ischemic attack (TIA), and cerebral infarction without residual deficits; Z79.01 Long term (current) use of anticoagulants; I48.91 Unspecified atrial fibrillation
CPT/HCPCS: 70450; 71045; 71275; 80048; 80053; 82962; 83605; 83615; 83735; 83880; 84100; 84484; 85025; 85610; 85730; 86850; 86900; 86901; 87015; 87040; 87070; 87101; 87205; 87206; 87340; 88108; 88305; 88312; 88341; 88342; 93005; 97116; 97162; 97166; 97530; 97535; 99285; A9575; J0360; J0456; J0690; J0696; J0885; J1644; J1815; J2250; J2405; J2704; J3010; J3490; J7030; J7040; J7050; 36415-L1; 36415-TC; U0003

== ENCOUNTER 2020-12-08 18:20 | Emergency (ER) | payer OTHER ==
[~2020-12-08] VITALS: Ht 170.2 cm; Wt 54.5 kg
[~2020-12-08 18:20] MED LIST changes: +ACET-3385 PO; +ALLO100T2 PO; +APIX2.5T PO; +BISA10SU11 PR; +CEFX2I IM; +DOCU-270 PO; -DSS100 PO; +FLUT16H NASAL; +FOLI1TAB85 PO; +GABA-1216 PO; +IBRU420T PO; -INSNOV SQ; +INSU100V SQ; +ISOS30TA92 PO; +LACT10SO75 PO; +MECL-160 PO; +METO50 PO; +MIRT-89 PO; +NITR0.4T52 SL; +OXYC5 PO; +SEVE800T17 PO; +TAMS-13 PO; -VIT1TABL95 PO; +[UNRECOGNIZED DRUG - CODE] SQ
[2020-12-08 18:36] LABS: GLUCOSE,POINT OF CARE 145 MG/DL (70-110)
[2020-12-08 19:35] VITALS: BP 147/84
== END 2020-12-08 19:48 | disposition home or self-care (01) ==
LOC: EMS 18:22
DX: Z45.2 Encounter for adjustment and management of vascular access device (principal); I12.0 Hypertensive chronic kidney disease with stage 5 chronic kidney disease or end stage renal disease; E11.22 Type 2 diabetes mellitus with diabetic chronic kidney disease; N18.6 End stage renal disease; E78.00 Pure hypercholesterolemia, unspecified; Z79.82 Long term (current) use of aspirin; Z79.4 Long term (current) use of insulin; Z99.2 Dependence on renal dialysis
CPT/HCPCS: 82962; 99282